=== PATIENT | male | born 2000 | race Caucasian/White ===

== ENCOUNTER 2023-08-05 21:58 | Emergency (ER) | payer OTHER ==
[~2023-08-05] VITALS: Ht 188 cm; Wt 65.3 kg
[2023-08-05] MEDS ORDERED: iohexol 350MG/ML 100ml bottle IV ONE (23:42)
[2023-08-06] MEDS: methylPREDNISolone sod succ 125mg/2ml vial IV ONE (00:19)
[2023-08-06] MEDS ORDERED: PRED20TA PO (00:35)
[2023-08-06] MEDS ORDERED: ALBU8HFA PO (00:35)
[2023-08-06] MEDS: ipratropium/albuterol 3ml nebule NEB ONE (01:24)
[2023-08-06 01:27] VITALS: PULSE 105; RESP 16; O2SAT 96
[2023-08-06 01:31] VITALS: PULSE 111; RESP 16; O2SAT 98
[2023-08-06 01:36] VITALS: BP 104/71; PULSE 107; RESP 17; TEMP 98.2; O2SAT 99
== END 2023-08-06 01:37 | disposition home or self-care (01) ==
LOC: ER 21:59
DX: J45.909 Unspecified asthma, uncomplicated (principal); Z79.899 Other long term (current) drug therapy
CPT/HCPCS: 71046; 71275; 93005; 94640; 96374; 99285; J2930; J3490; Q9967